=== PATIENT | male | born 1985 | race African-American/Black ===

== ENCOUNTER 2016-09-01 09:11 | Emergency (ER) | payer OTHER ==
[2016-09-01] MEDS ORDERED: IPRATROPIUM-ALBUTEROL 3 ML NEB INHALATION STA (10:22)
[2016-09-01] MEDS ORDERED: methylPREDNISolone SOD SUCCI 125 MG/2 ML VIAL IM STA (10:25)
--- NOTE | 2016-09-01 10:33 | ED ---
General Adult HPI - General Chief complaint: Upper Respiratory Infection Stated complaint: CHEST CONGESTION, LUNG PAIN Time Seen by Provider: 09/01/16 10:15 Source: patient, RN notes reviewed Mode of arrival: ambulatory Limitations: no limitations - History of Present Illness Initial comments: Patient is a 30-year-old male who presents emergency room today with a chief complaint of cough congestion over the last 2 days. Patient does admit that he does have a history of asthma but does not use breathing she was at home. He was seen at [facility] emergency room earlier today and states had a flu swab and a chest x-ray but was never told results discharged home. Patient denies any sputum production. He denies any other complaints or symptoms at this time. Patient denies any recent fever, chills, shortness of breath, chest pain , back pain, abdominal pain, nausea or vomiting, numbness or tingling, dysuria or hematuria, constipation or diarrhea, headaches or visual changes, or any other complaints. - Related Data Home Medications Medication Instructions Recorded Confirmed Acetaminophen Tab [Tylenol Tab] 1,000 mg PO Q6HR PRN 09/01/16 09/01/16 Albuterol Inhaler [Ventolin Hfa 2 puff INHALATION RT-Q6H PRN 09/01/16 09/01/16 Inhaler] Ibuprofen [Motrin] 400 mg PO Q6HR PRN 09/01/16 09/01/16 Previous Rx's Medication Instructions Recorded Albuterol Inhaler [Ventolin Hfa 1 - 2 puff INHALATION Q4-6H PRN #1 09/01/16 Inhaler] inhaler Albuterol Nebulized [Ventolin 2.5 mg INHALATION Q4H PRN 10 Days 09/01/16 Nebulized] predniSONE 60 mg PO DAILY 5 Days 09/01/16 Allergies Allergy/AdvReac Type Severity Reaction Status Date / Time No Known Allergies Allergy Verified 09/01/16 09:43 Review of Systems ROS Statement: Those systems with pertinent positive or pertinent negative responses have been documented in the HPI. ROS Other: All systems not noted in ROS Statement are negative. Past Medical History Past Medical History: Asthma History of Any Multi-Drug Resistant Organisms: None Reported Past Surgical History: No Surgical Hx Reported Past Psychological History: No Psychological Hx Reported Smoking Status: Current some day smoker Past Alcohol Use History: None Reported General Exam - General Exam Comments Initial Comments: General: The patient is awake and alert, in no distress, and does not appear acutely ill. Eye: Pupils are equal, round and reactive to light, extra-ocular movements are intact. No nystagmus. There is normal conjunctiva bilaterally. No signs of icterus. Ears, nose, mouth and throat: There are moist mucous membranes and no oral lesions. Neck: The neck is supple, there is no tenderness or JVD. Cardiovascular: There is a regular rate and rhythm. No murmur, rub or gallop is appreciated. Respiratory: Decreased respiratory sounds bilaterally with mild expiratory wheeze. respirations are non-labored, breath sounds are equal. No stridor, rales, or rhonchi. Gastrointestinal: Soft, non-distended, non-tender abdomen without masses or organomegaly noted. There is no rebound or guarding present. No CVA tenderness. Bowel sounds are unremarkable. Musculoskeletal: Normal ROM, no tenderness. Strength 5/5. Sensation intact. Pulses equal bilaterally 2+. Neurological: A&O x 3. CN II-XII intact, There are no obvious motor or sensory deficits. Coordination appears grossly intact. Speech is normal. Skin: Skin is warm and dry and no rashes or lesions are noted. Psychiatric: Cooperative, appropriate mood & affect, normal judgment. Limitations: no limitations Course Vital Signs 09/01/16 09/01/16 09/01/16 09:23 10:39 10:51 Temperature 99.9 F H Pulse Rate 88 84 84 Respiratory 20 Rate Blood Pressure 122/80 O2 Sat by Pulse 96 Oximetry 09/01/16 11:24 Temperature 99.7 F H Pulse Rate 77 Respiratory 16 Rate Blood Pressure 140/81 O2 Sat by Pulse 98 Oximetry Medical Decision Making - Medical Decision Making Patient reexamined at this time shows no signs of distress. Lung sounds clear bilaterally after breathing treatment. Patient feeling better. Patient will be discharged home chest x-ray negative. Will be continuing a breathing treatment states does have access to 1 at home. Patient advised to continue his albuterol inhaler also be started on steroids. Advised follow-up over the next 2 days or return if any symptoms increase worsen or for any other concerns. Disposition Clinical Impression: Asthma exacerbation Disposition: HOME SELF-CARE Condition: Good Instructions: Upper Respiratory Infection (ED) Additional Instructions: Please use medication as discussed. Please follow-up with family doctor in the next 2 days of symptoms have not improved. Please return to emergency room if the symptoms increase or worsen or for any other concerns. Prescriptions: Albuterol Inhaler [Ventolin Hfa Inhaler] 1 - 2 puff INHALATION Q4-6H PRN #1 inhaler PRN Reason: Cough Albuterol Nebulized [Ventolin Nebulized] 2.5 mg INHALATION Q4H PRN 10 Days PRN Reason: Cough predniSONE 60 mg PO DAILY 5 Days Time of Disposition: 11:41
--- NOTE | 2016-09-01 10:58 | XR ---
EXAMINATION TYPE: XR chest 2V DATE OF EXAM: 09/01/2016 10:36 AM COMPARISON: None TECHNIQUE: PA and lateral views submitted. HISTORY: Shortness of breath and chest pain FINDINGS: The lungs are clear and there is no pneumothorax, pleural effusion, or focal pneumonia. IMPRESSION: 1. No acute process.
[2016-09-01 11:30] VITALS: BP 140/81; PULSE 77; RESP 16; TEMP 99.7
== END 2016-09-01 11:54 | disposition home or self-care (01) ==
LOC: EC 09:11
DX: J45.901 Unspecified asthma with (acute) exacerbation (principal); F17.200 Nicotine dependence, unspecified, uncomplicated
CPT/HCPCS: 94640; 71020; 99283; 96372; J2930

== ENCOUNTER 2017-01-16 06:53 | Emergency (ER) | payer OTHER ==
[2017-01-16] MEDS ORDERED: ALBUTEROL NEBULIZED 7.5 MG, IPRATROPIUM NEBULIZED 0.5 MG, SODIUM CHLORIDE 0.9% NEBULIZ ... INHALATION ONE ×3 (07:30)
[2017-01-16] MEDS ORDERED: methylPREDNISolone SOD SUCCI 125 MG/2 ML VIAL IM ONE (07:31)
--- NOTE | 2017-01-16 07:55 | ED ---
General Adult HPI - General Chief complaint: Upper Respiratory Infection Stated complaint: KYLER/vomiting blood Time Seen by Provider: 01/16/17 07:00 Source: patient, RN notes reviewed Mode of arrival: ambulatory Limitations: no limitations - History of Present Illness Initial comments: This is a 31-year-old male presents emergency department with past medical history significant for asthma. Patient states he's been having some difficulty breathing over the last couple of days. Patient states this morning was much worse we decided to come to the emergency department. Patient states she's had a cough sputum production. Patient denies any recent fever chills. Patient denies any chest pain. Patient denies any abdominal pain. Patient denies any nausea or vomiting. Patient denies any lightheadedness patient denies any dizziness. Patient denies any numbness weakness or headache. Patient states last month he was treated for bronchitis. Patient states he's a casual smoker. - Related Data Home Medications Medication Instructions Recorded Confirmed Albuterol Inhaler [Ventolin Hfa 1 - 2 puff INHALATION RT-Q4H PRN 01/16/17 Inhaler] Albuterol Nebulized [Ventolin 2.5 mg INHALATION RT-Q4H PRN 01/16/17 01/16/17 Nebulized] Previous Rx's Medication Instructions Recorded Ipratropium-Albuterol Nebulize 3 ml INHALATION QID #120 neb 01/16/17 [Duoneb 0.5 mg-3 mg/3 ml Soln] predniSONE 40 mg PO DAILY #8 tab 01/16/17 Allergies Allergy/AdvReac Type Severity Reaction Status Date / Time No Known Allergies Allergy Verified 01/16/17 08:15 Review of Systems ROS Statement: Those systems with pertinent positive or pertinent negative responses have been documented in the HPI. ROS Other: All systems not noted in ROS Statement are negative. Past Medical History Past Medical History: Asthma History of Any Multi-Drug Resistant Organisms: None Reported Past Surgical History: No Surgical Hx Reported Past Psychological History: Bipolar Smoking Status: Current every day smoker Past Alcohol Use History: None Reported Past Drug Use History: Marijuana General Exam - General Exam Comments Initial Comments: GENERAL: Patient is well-developed and well-nourished. Patient is nontoxic and well- hydrated and is in mild distress. ENT: Neck is soft and supple. No significant lymphadenopathy is noted. Oropharynx is clear. Moist mucous membranes. Neck has full range of motion without eliciting any pain. EYES: The sclera were anicteric and conjunctiva were pink and moist. Extraocular movements were intact and pupils were equal round and reactive to light. Eyelids were unremarkable. PULMONARY: Patient is wheezing diffusely. CARDIOVASCULAR: There is a regular rate and rhythm without any murmurs gallops or rubs. ABDOMEN: Soft and nontender with normal bowel sounds. No palpable organomegaly was noted. There is no palpable pulsatile mass. SKIN: Skin is clear with no lesions or rashes and otherwise unremarkable. NEUROLOGIC: Patient is alert and oriented x3. Cranial nerves II through XII are grossly intact. Motor and sensory are also intact. Normal speech, volume and content. Symmetrical smile. MUSCULOSKELETAL: Normal extremities with adequate strength and full range of motion. LYMPHATICS: No significant lymphadenopathy is noted PSYCHIATRIC: Normal psychiatric evaluation. Limitations: no limitations Course Vital Signs 01/16/17 01/16/17 01/16/17 06:58 07:16 07:51 Temperature 98.7 F 97.1 F L Pulse Rate 61 58 L Respiratory 18 22 18 Rate Blood Pressure 137/92 134/88 O2 Sat by Pulse 100 100 Oximetry 01/16/17 01/16/17 01/16/17 08:15 08:31 08:51 Temperature 97.1 F L Pulse Rate 88 90 52 L Respiratory 15 Rate Blood Pressure 146/75 O2 Sat by Pulse 100 Oximetry 01/16/17 09:03 Temperature Pulse Rate 82 Respiratory Rate Blood Pressure O2 Sat by Pulse Oximetry Medical Decision Making - Medical Decision Making I gave the patient 3 [id number] breathing treatments with Atrovent and steroids. Patient's chest x-ray was normal. I listened to the patient after the breathing treatment she sounded much better he felt much improved. Disposition Clinical Impression: Acute asthma exacerbation Disposition: HOME SELF-CARE Condition: Good Instructions: Asthma (ED) Prescriptions: Ipratropium-Albuterol Nebulize [Duoneb 0.5 mg-3 mg/3 ml Soln] 3 ml INHALATION QID #120 neb predniSONE 40 mg PO DAILY #8 tab Referrals: Victor M Isbell MD [Primary Care Provider] - 1-2 days Time of Disposition: 09:32
--- NOTE | 2017-01-16 08:15 | XR ---
EXAMINATION TYPE: XR chest 2V DATE OF EXAM: 01/16/2017 COMPARISON: Prior chest x-ray 09/01/2016 HISTORY: Difficulty breathing, vomiting blood TECHNIQUE: Frontal and lateral views of the chest are obtained on 3 images. FINDINGS: There is no focal air space opacity, pleural effusion, or pneumothorax seen. The cardiac silhouette size is within normal limits. The osseous structures are intact. IMPRESSION: No acute cardiopulmonary process.
[2017-01-16 08:53] VITALS: RESP 15
[2017-01-16 09:45] VITALS: BP 145/71; PULSE 64; TEMP 97.7
== END 2017-01-16 09:49 | disposition home or self-care (01) ==
LOC: EC 06:53
DX: J45.901 Unspecified asthma with (acute) exacerbation (principal); F17.200 Nicotine dependence, unspecified, uncomplicated
CPT/HCPCS: 94644; 71020; 99283; 96372; J2930

== ENCOUNTER 2017-02-02 10:14 | Emergency (ER) | payer OTHER ==
[2017-02-02 10:36] VITALS: BP 129/75; PULSE 68; RESP 20; TEMP 97.9
--- NOTE | 2017-02-02 10:48 | ED ---
Wound/Laceration HPI - General Chief Complaint: Wound/Laceration Stated Complaint: HEAD INJURY, [facility] Time Seen by Provider: 02/02/17 10:38 Source: patient, RN notes reviewed, old records reviewed Mode of arrival: ambulatory Limitations: no limitations - History of Present Illness Initial Comments: This is a 31-year-old male presents emergency room chief complaint a laceration near his left eyebrow. Patient states that he was at work and was turning around and collided with a coworker and they both hit heads. Patient reports he has a headache. Patient states he has had concussions in the past. Patient denies any loss of consciousness. Patient denies any neurological complaints, denies any vision changes. Denies any pain with extra ocular eye movements.Patient denies any recent fever, chills, shortness of breath, chest pain, back pain, abdominal pain, nausea vomiting, numbness or tingling, dysuria or hematuria, constipation or diarrhea, headaches or visual changes, or any other current symptoms - Related Data Home Medications Medication Instructions Recorded Confirmed Albuterol Inhaler [Ventolin Hfa 1 - 2 puff INHALATION RT-QID PRN 01/16/17 Inhaler] Albuterol Nebulized [Ventolin 2.5 mg INHALATION RT-Q4H PRN 01/16/17 02/02/17 Nebulized] Allergies Allergy/AdvReac Type Severity Reaction Status Date / Time No Known Allergies Allergy Verified 02/02/17 10:44 Review of Systems ROS Statement: Those systems with pertinent positive or pertinent negative responses have been documented in the HPI. ROS Other: All systems not noted in ROS Statement are negative. Past Medical History Past Medical History: Asthma History of Any Multi-Drug Resistant Organisms: None Reported Past Surgical History: No Surgical Hx Reported Past Psychological History: Bipolar Smoking Status: Current every day smoker Past Alcohol Use History: None Reported Past Drug Use History: Marijuana General Exam - General Exam Comments Initial Comments: Physical 31-year-old male. No acute distress. Limitations: no limitations General appearance: alert, in no apparent distress Head exam: Present: atraumatic, normocephalic, normal inspection Eye exam: Present: normal appearance, PERRL, EOMI, other (Once earlier laceration over the left lateral eyebrow.). Absent: scleral icterus, conjunctival injection, periorbital swelling ENT exam: Present: normal exam, mucous membranes moist Neck exam: Present: normal inspection. Absent: tenderness, meningismus, lymphadenopathy Respiratory exam: Present: normal lung sounds bilaterally. Absent: respiratory distress, wheezes, rales, rhonchi, stridor Cardiovascular Exam: Present: regular rate, normal rhythm, normal heart sounds. Absent: systolic murmur, diastolic murmur, rubs, gallop, clicks GI/Abdominal exam: Present: soft, normal bowel sounds. Absent: distended, tenderness, guarding, rebound, rigid Extremities exam: Present: normal inspection, full ROM, normal capillary refill. Absent: tenderness, pedal edema, joint swelling, calf tenderness Back exam: Present: normal inspection Neurological exam: Present: alert, oriented X3, CN II-XII intact Psychiatric exam: Present: normal affect, normal mood Skin exam: Present: warm, dry, intact, normal color. Absent: rash Course Vital Signs 02/02/17 10:33 Temperature 97.9 F Pulse Rate 68 Respiratory 20 Rate Blood Pressure 129/75 O2 Sat by Pulse 99 Oximetry Procedures - Laceration Laceration #1 Indication: laceration Site: face Size (cm): 1 Description: linear Depth: simple, single layer Anesthetic Used: lidocaine 1% Anesthesia Technique: local infiltration Amount (mls): 1 Pre-repair: wound explored, irrigated extensively Type of Sutures: nylon Size of Sutures: 6-0 Number of Sutures: 1 Technique: simple, interrupted Patient Tolerated Procedure: well, no complications Medical Decision Making - Medical Decision Making This is a 31-year-old male presents emergency room chief complaint a laceration near his left eyebrow. Patient states that he was at work and was turning around and collided with a coworker and they both hit heads. Patient reports he has a headache. Patient states he has had concussions in the past. Patient denies any loss of consciousness. Patient was given 1 sutures. Patient reports he is up-to-date on his tetanus shot. This patient was given Motrin Tylenol for his headache. He has no neurological deficits. Patient advised to return for any worsening signs or symptoms of laceration. Patient understands history plan will comply. Return parameters were discussed. Disposition Clinical Impression: Eyebrow laceration, Minor head injury without loss of consciousness Disposition: HOME SELF-CARE Condition: Good Instructions: Laceration (ED) Additional Instructions: Please return to the emergency room in 5-7 days to have sutures removed. Please leave wound covered for the first 24-48 hours and then leave open to air after that time. Please use clean soap and water to clean the suture area to prevent scabbing over the top of your sutures. Please watch for any signs of infection which may include but not limited to increased pain, swelling, redness, fever or chills. Please return to the emergency room if any signs of infection do occur. Please return to the emergency room for any other concerns or complications. Referrals: Victor M Isbell MD [Primary Care Provider] - 1-2 days Time of Disposition: 10:47
[2017-02-02] MEDS ORDERED: IBUPROFEN 600 MG STARTER PACK 4 TAB BTL PO STA (11:31)
[2017-02-02] MEDS ORDERED: ACETAMINOPHEN TAB 325 MG TAB PO STA (11:31)
== END 2017-02-02 11:44 | disposition home or self-care (01) ==
LOC: EC 10:14
DX: S01.112A Laceration without foreign body of left eyelid and periocular area, initial encounter (principal); F17.200 Nicotine dependence, unspecified, uncomplicated; W25.XXXA Contact with sharp glass, initial encounter; Y99.0 Civilian activity done for income or pay; Y92.69 Other specified industrial and construction area as the place of occurrence of the external cause
CPT/HCPCS: 12011; 99283

== ENCOUNTER 2017-07-18 23:59 | Emergency (ER) | payer OTHER ==
[2017-07-19] MEDS ORDERED: IBUPROFEN 600 MG TAB PO STA (00:22)
[2017-07-19] MEDS ORDERED: ONDANSETRON ODT 4 MG TAB PO STA (00:22)
[2017-07-19] MEDS ORDERED: ACETAMINOPHEN TAB 325 MG TAB PO STA (00:22)
[2017-07-19] MEDS ORDERED: OSELTAMIVIR 75 MG CAP PO STA (01:26)
--- NOTE | 2017-07-19 01:26 | XR ---
EXAMINATION TYPE: XR chest 2V DATE OF EXAM: 07/19/2017 COMPARISON: 01/16/2017 HISTORY: Chest pain TECHNIQUE: Frontal and lateral views of the chest are obtained. FINDINGS: Heart and mediastinum are normal. Lungs are clear. Diaphragm is normal. Bony thorax appear s normal. IMPRESSION: Normal chest. No change.
--- NOTE | 2017-07-19 01:35 | ED ---
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 Patient states that symptoms started early this morning. He states that he has not taken Tylenol or Motrin and "hours". He states that occasionally he feels short of breath like his lungs are burning. He denies any sputum production. He states he has been nauseated however has not vomited. He complains of generalized body aches and headache. His child is sick with similar symptoms. He does admit to smoking cigarettes. Patient denies any recent rash, abdominal pain, diarrhea, constipation, back pain, numbness, tingling, dizziness, weakness, hematuria, dysuria, urinary urgency, urinary frequency, visual changes, or any other complaints. - Related Data Home Medications Medication Instructions Recorded Confirmed Albuterol Inhaler [Ventolin Hfa 1 - 2 puff INHALATION RT-QID PRN 01/16/17 Inhaler] Albuterol Nebulized [Ventolin 2.5 mg INHALATION RT-Q4H PRN 01/16/17 07/19/17 Nebulized] Previous Rx's Medication Instructions Recorded Oseltamivir [Tamiflu] 75 mg PO Q12HR #10 cap 07/19/17 Allergies Allergy/AdvReac Type Severity Reaction Status Date / Time No Known Allergies Allergy Verified 07/19/17 00:13 Review of Systems ROS Statement: Those systems with pertinent positive or pertinent negative responses have been documented in the HPI. ROS Other: All systems not noted in ROS Statement are negative. Past Medical History Past Medical History: Asthma History of Any Multi-Drug Resistant Organisms: None Reported Past Surgical History: No Surgical Hx Reported Past Psychological History: Bipolar Smoking Status: Current every day smoker Past Alcohol Use History: None Reported Past Drug Use History: Marijuana General Exam Limitations: no limitations General appearance: alert, in no apparent distress, other (This is a well- developed, well-nourished adult male patient in no acute distress. Vital signs upon presentation are temperature 100.2F, pulse 104, respirations 22, blood pressure 112/74, pulse ox 97% on room air.) Eye exam: Present: normal appearance, PERRL, EOMI. Absent: scleral icterus, conjunctival injection, periorbital swelling ENT exam: Present: normal exam, mucous membranes moist, TM's normal bilaterally. Absent: normal oropharynx (Pharyngeal erythema, no tonsillar hypertrophy or exudate noted.) Neck exam: Present: normal inspection. Absent: tenderness, meningismus, lymphadenopathy Respiratory exam: Present: normal lung sounds bilaterally. Absent: respiratory distress, wheezes, rales, rhonchi, stridor Cardiovascular Exam: Present: normal rhythm, tachycardia, normal heart sounds. Absent: systolic murmur, diastolic murmur, rubs, gallop, clicks GI/Abdominal exam: Present: soft, normal bowel sounds. Absent: distended, tenderness, guarding, rebound, rigid Neurological exam: Present: alert, oriented X3, CN II-XII intact Psychiatric exam: Present: normal affect, normal mood Skin exam: Present: warm, dry, intact, normal color. Absent: rash Course Vital Signs 07/19/17 07/19/17 07/19/17 00:09 00:26 00:29 Temperature 102 F H Pulse Rate 104 H Respiratory 22 20 20 Rate Blood Pressure 112/74 O2 Sat by Pulse 97 Oximetry 07/19/17 01:54 Temperature 99.6 F Pulse Rate 110 H Respiratory 18 Rate Blood Pressure 122/57 O2 Sat by Pulse 97 Oximetry Medical Decision Making - Medical Decision Making 31-year-old male patient presented to the emergency department today for complaints of fever, cough, and sore throat. Physical examination did reveal pharyngeal erythema. Lungs are clear to auscultation with good air movement. We did obtain a chest x-ray which showed no acute cardiopulmonary process. We did perform influenza testing which was negative however child was being seen in the emergency department at the same time and was positive for influenza A. In light of this development we will treat the patient with Tamiflu. He is educated regarding fever control. He is instructed to rest and increase fluids. He is instructed to follow-up with his primary care physician for recheck in 1-2 days. He is instructed to return here immediately for any new, worsening, or concerning symptoms. He verbalizes understanding and agrees with this plan. - Lab Data Lab Results 07/19/17 Range/Units 00:14 Influenza Type A RNA Not Detected (Not Detectd) Influenza Type B (PCR) Not Detected (Not Detectd) - Radiology Data Radiology results: report reviewed, image reviewed Two-view x-ray of the chest shows a heart and mediastinum are normal. Lungs are clear. Diaphragm is normal. Bony thorax appears normal. Impression by Dr. Ragsdale shows normal chest with no change. Disposition Clinical Impression: Influenza Disposition: HOME SELF-CARE Condition: Good Instructions: Fever in Adults (ED), Influenza (ED) Additional Instructions: Increase fluids. Rest. Take [id number] nasal decongestants and cold remedies for symptom control. Alternate ibuprofen and acetaminophen for fever control. Follow-up with primary care physician for recheck in 1-2 days. Return here immediately for any new, worsening, or concerning symptoms. Prescriptions: Oseltamivir [Tamiflu] 75 mg PO Q12HR #10 cap Referrals: Victor M Isbell MD [Primary Care Provider] - 1-2 days Time of Disposition: 01:34
[2017-07-19 01:56] VITALS: BP 122/57; PULSE 110; RESP 18; TEMP 99.6
== END 2017-07-19 01:56 | disposition home or self-care (01) ==
LOC: EC 23:59
DX: J11.1 Influenza due to unidentified influenza virus with other respiratory manifestations (principal); J45.909 Unspecified asthma, uncomplicated; F17.200 Nicotine dependence, unspecified, uncomplicated
CPT/HCPCS: 71046; 87502; 99283

== ENCOUNTER 2018-07-12 17:42 | Emergency (ER) | payer OTHER ==
[2018-07-12 17:50] VITALS: BP 150/91; PULSE 85; RESP 16; TEMP 97.6
[2018-07-12] MEDS ORDERED: ACETAMINOPHEN TAB 325 MG TAB PO STA (17:57)
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
--- NOTE | 2018-07-12 19:08 | XR ---
EXAMINATION TYPE: XR forearm LT DATE OF EXAM: 07/12/2018 COMPARISON: NONE HISTORY: Forearm pain TECHNIQUE: 2 views FINDINGS: I see no fracture nor dislocation. Elbow joint and wrist joint appear intact. IMPRESSION: Negative left forearm exam.
== END 2018-07-12 19:00 | disposition left against medical advice (07) ==
LOC: EC 17:42
DX: S09.90XA Unspecified injury of head, initial encounter (principal); M79.602 Pain in left arm; J45.909 Unspecified asthma, uncomplicated; F17.200 Nicotine dependence, unspecified, uncomplicated; Y04.8XXA Assault by other bodily force, initial encounter; Y92.009 Unspecified place in unspecified non-institutional (private) residence as the place of occurrence of the external cause
CPT/HCPCS: 70450; 99284